=== PATIENT | female | born 1965 | race Two or more races ===

== ENCOUNTER → 2017-03-03 | Outpatient (CLI) | payer OTHER ==
[~2017-03-03] MED LIST: AMLO5 PO; Advair Hfa 230-12 GM INH; Augmentin 875-1 EACH PO; BACITRAYCIN PLU28 GM TOP; CYCL10 PO; Ceftriaxon2 GM/50 ML IV; DOXY100 PO; FIORINAL-COD 31 EACH PO; GABA300 PO; HYDR1TAB94 PO; METO100ER PO; MONT10T PO; PANT40 PO; PRAM.5 PO; QUIN10 PO; SACC250C PO; SERT100 PO; TOLT2ER PO; VANCO 1.251.25 GM/25 IV
== END ==
LOC: LAB EV 11:56
DX: L03.90 Cellulitis, unspecified (principal)
CPT/HCPCS: 87070; 87077; 87147; 87186; 87205

== ENCOUNTER 2017-03-10 11:49 | Inpatient (IN) | payer OTHER ==
[~2017-03-10] VITALS: Ht 144.8 cm; Wt 118.3 kg
[2017-03-10 13:12] LABS: BASOPHILS ABSOLUTE AUTO 0.03 K/mm3 (0.00-0.23); BASOPHILS PERCENT AUTO 0 % (0-2); EOSINOPHILS ABSOLUTE AUTO 0.06 K/mm3 (0.00-0.68); EOSINOPHILS PERCENT AUTO 1 % (0-6); Hemoglobin 12.3 g/dL (11.5-16.0); IMMATURE GRAN ABSOLUTE AUTO 0.17 K/mm3 (0.00-0.10); IMMATURE GRAN PERCENT AUTO 2 % (0-1); LYMPHOCYTES ABSOLUTE AUTO 1.15 K/mm3 (0.84-5.20); LYMPHOCYTES PERCENT AUTO 10 % (21-46); MONOCYTES ABSOLUTE AUTO 0.59 K/mm3 (0.16-1.47); MONOCYTES PERCENT AUTO 5 % (4-13); Mean Corpuscular HGB 29.1 pg (26.0-34.0); Mean Corpuscular HGB Conc 31.5 g/dL (31.5-36.5); Mean Corpuscular Volume 92 fL (80-100); Mean Platelet Volume 10.7 fL (9.1-12.4); NEUTROPHILS ABSOLUTE AUTO 9.56 K/mm3 (1.96-9.15); NEUTROPHILS PERCENT AUTO 83 % (41-73); Platelet Count 361 K/mm3 (150-400); Red Blood Cell Count 4.23 M/mm3 (3.80-5.20); White Blood Cell Count 11.56 K/mm3 (4.00-11.30)
[2017-03-10 13:28] LABS: Alanine Aminotransfer (ALT/SGP 27 U/L (12-78); Albumin/Globulin Ratio 0.4 (0.8-1.8); Alk Phos 121 U/L (50-136); Anion Gap 7 mmol/L (6-16); Aspartate Aminotrans (AST/SGOT 29 U/L (12-37); Bilirubin, Total 0.4 mg/dL (0.1-1.0); Blood Urea Nitrogen 15 mg/dL (8-24); Bun/Creatinine Ratio 25.3 (12.0-20.0); CO2, Blood 24 mmol/L (21-32); Calcium, Blood 8.6 mg/dL (8.5-10.1); Chloride, Blood 107 mmol/L (98-108); Creatinine, Blood 0.59 mg/dL (0.40-1.00); Globulin, Blood 5.7 g/dL (2.2-4.0); Glomerular Filtration Rate >60 (60-); Glucose, Blood 175 mg/dL (70-99); Potassium, Blood 3.9 mmol/L (3.5-5.5); Sodium, Blood 138 mmol/L (136-145); Total Protein, Blood 7.7 g/dL (6.4-8.2)
[2017-03-10 17:30] LABS: Source, Urine Clean Catch
[2017-03-10] MEDS ORDERED: HYDR1TAB94 PO (17:33)
[2017-03-10] MEDS ORDERED: PRAM.5 PO (17:33)
[2017-03-10] MEDS ORDERED: CYCL10 PO (17:34)
[2017-03-10] MEDS ORDERED: AMLO5 PO (17:34)
[2017-03-10] MEDS ORDERED: Advair Hfa 230-12 GM INH (17:34)
[2017-03-10] MEDS ORDERED: GABA300 PO (17:34)
[2017-03-10] MEDS ORDERED: PANT40 PO (17:35)
[2017-03-10] MEDS ORDERED: QUIN10 PO (17:36)
[2017-03-10] MEDS ORDERED: DOXY100 PO (17:36)
[2017-03-10] MEDS ORDERED: MONT10T PO (17:37)
[2017-03-10] MEDS ORDERED: METO100ER PO (17:37)
[2017-03-10] MEDS ORDERED: Augmentin 875-1 EACH PO (17:37)
[2017-03-10] MEDS ORDERED: TOLT2ER PO (17:37)
[2017-03-10] MEDS ORDERED: SERT100 PO (17:38)
[2017-03-10 17:39] LABS: Bilirubin, Urine Neg (Neg); Blood, Urine 2+ (Neg); Glucose Qualitative, Urine Neg (Neg); Ketones, Urine Neg (Neg); Leukocyte Esterase, Urine 3+ (Neg); Nitrite, Urine Neg (Neg); Protein, Urine 1+ (Neg); Urobilinogen, Urine NORM (Normal)
[2017-03-10 18:08] LABS: Appearance, Urine Hazy (Clear); Color, Urine Yellow (P-Yellow); Red Blood Cells, Urine Not Seen /hpf (0-2); Squamous Epithelial Cells Mod /hpf (Few)
[2017-03-10 18:09] LABS: Bacteria Not Seen /hpf; White Blood Cells, Urine 0-2 /hpf (0-5)
[2017-03-12 07:04] LABS: BASOPHILS ABSOLUTE AUTO 0.03 K/mm3 (0.00-0.23); BASOPHILS PERCENT AUTO 0 % (0-2); EOSINOPHILS PERCENT AUTO 1 % (0-6); Hematocrit 32.1 % (33.0-51.0); Hemoglobin 10.4 g/dL (11.5-16.0); IMMATURE GRAN ABSOLUTE AUTO 0.07 K/mm3 (0.00-0.10); IMMATURE GRAN PERCENT AUTO 1 % (0-1); LYMPHOCYTES ABSOLUTE AUTO 1.69 K/mm3 (0.84-5.20); LYMPHOCYTES PERCENT AUTO 19 % (21-46); MONOCYTES ABSOLUTE AUTO 0.61 K/mm3 (0.16-1.47); MONOCYTES PERCENT AUTO 7 % (4-13); Mean Corpuscular HGB 29.1 pg (26.0-34.0); Mean Corpuscular HGB Conc 32.4 g/dL (31.5-36.5); Mean Corpuscular Volume 90 fL (80-100); Mean Platelet Volume 9.9 fL (9.1-12.4); NEUTROPHILS ABSOLUTE AUTO 6.26 K/mm3 (1.96-9.15); NEUTROPHILS PERCENT AUTO 72 % (41-73); Platelet Count 378 K/mm3 (150-400); RDW Coefficient Variation 14.6 % (11.7-14.2); RDW Standard Deviation 48.2 fL (35.1-46.3); Red Blood Cell Count 3.57 M/mm3 (3.80-5.20); White Blood Cell Count 8.76 K/mm3 (4.00-11.30)
[2017-03-12 07:44] LABS: Anion Gap 6 mmol/L (6-16); Blood Urea Nitrogen 8 mg/dL (8-24); Bun/Creatinine Ratio 13.4 (12.0-20.0); CO2, Blood 26 mmol/L (21-32); Chloride, Blood 107 mmol/L (98-108); Glomerular Filtration Rate >60 (60-); Glucose, Blood 91 mg/dL (70-99); Potassium, Blood 3.8 mmol/L (3.5-5.5); Sodium, Blood 139 mmol/L (136-145)
[2017-03-12 07:47] LABS: Vancomycin, Trough 19.4 ug/mL (5.0-10.0)
[2017-03-14 08:53] LABS: Vancomycin, Trough 15.7 ug/mL (5.0-10.0)
[2017-03-15 05:52] LABS: Hematocrit 33.3 % (33.0-51.0); Hemoglobin 10.7 g/dL (11.5-16.0); Mean Corpuscular HGB 29.1 pg (26.0-34.0); Mean Corpuscular HGB Conc 32.1 g/dL (31.5-36.5); Mean Corpuscular Volume 91 fL (80-100); Mean Platelet Volume 9.8 fL (9.1-12.4); Platelet Count 471 K/mm3 (150-400); RDW Coefficient Variation 14.3 % (11.7-14.2); RDW Standard Deviation 47.5 fL (35.1-46.3); Red Blood Cell Count 3.68 M/mm3 (3.80-5.20); White Blood Cell Count 7.77 K/mm3 (4.00-11.30)
[2017-03-15 06:18] LABS: Anion Gap 5 mmol/L (6-16); Blood Urea Nitrogen 8 mg/dL (8-24); Bun/Creatinine Ratio 12.2 (12.0-20.0); CO2, Blood 27 mmol/L (21-32); Calcium, Blood 8.4 mg/dL (8.5-10.1); Chloride, Blood 105 mmol/L (98-108); Creatinine, Blood 0.66 mg/dL (0.40-1.00); Glomerular Filtration Rate >60 (60-); Glucose, Blood 104 mg/dL (70-99); Potassium, Blood 3.9 mmol/L (3.5-5.5); Sodium, Blood 137 mmol/L (136-145)
[2017-03-18 08:55] LABS: Creatinine, Blood 0.57 mg/dL (0.40-1.00); Vancomycin, Trough 18.1 ug/mL (5.0-10.0)
[2017-03-21 09:03] LABS: BASOPHILS ABSOLUTE AUTO 0.11 K/mm3 (0.00-0.23); BASOPHILS PERCENT AUTO 1 % (0-2); EOSINOPHILS PERCENT AUTO 1 % (0-6); Hematocrit 31.2 % (33.0-51.0); Hemoglobin 9.7 g/dL (11.5-16.0); IMMATURE GRAN ABSOLUTE AUTO 0.02 K/mm3 (0.00-0.10); IMMATURE GRAN PERCENT AUTO 0 % (0-1); LYMPHOCYTES ABSOLUTE AUTO 2.71 K/mm3 (0.84-5.20); LYMPHOCYTES PERCENT AUTO 30 % (21-46); MONOCYTES ABSOLUTE AUTO 0.71 K/mm3 (0.16-1.47); MONOCYTES PERCENT AUTO 8 % (4-13); Mean Corpuscular HGB 28.9 pg (26.0-34.0); Mean Corpuscular HGB Conc 31.1 g/dL (31.5-36.5); Mean Corpuscular Volume 93 fL (80-100); Mean Platelet Volume 9.8 fL (9.1-12.4); NEUTROPHILS ABSOLUTE AUTO 5.31 K/mm3 (1.96-9.15); NEUTROPHILS PERCENT AUTO 59 % (41-73); Platelet Count 452 K/mm3 (150-400); RDW Coefficient Variation 13.9 % (11.7-14.2); RDW Standard Deviation 47.1 fL (35.1-46.3); Red Blood Cell Count 3.36 M/mm3 (3.80-5.20); White Blood Cell Count 8.96 K/mm3 (4.00-11.30)
[2017-03-21 09:25] LABS: Anion Gap 3 mmol/L (6-16); Blood Urea Nitrogen 10 mg/dL (8-24); Bun/Creatinine Ratio 17.4 (12.0-20.0); CO2, Blood 31 mmol/L (21-32); Calcium, Blood 8.7 mg/dL (8.5-10.1); Chloride, Blood 103 mmol/L (98-108); Creatinine, Blood 0.58 mg/dL (0.40-1.00); Glomerular Filtration Rate >60 (60-); Glucose, Blood 94 mg/dL (70-99); Potassium, Blood 4.1 mmol/L (3.5-5.5); Sodium, Blood 137 mmol/L (136-145)
[2017-03-21 10:33] LABS: Creatinine, Blood 0.59 mg/dL (0.40-1.00); Vancomycin, Trough 17.1 ug/mL (5.0-10.0)
[2017-03-22 07:13] LABS: BASOPHILS ABSOLUTE AUTO 0.14 K/mm3 (0.00-0.23); BASOPHILS PERCENT AUTO 2 % (0-2); EOSINOPHILS ABSOLUTE AUTO 0.25 K/mm3 (0.00-0.68); EOSINOPHILS PERCENT AUTO 4 % (0-6); Hematocrit 32.1 % (33.0-51.0); Hemoglobin 9.9 g/dL (11.5-16.0); IMMATURE GRAN ABSOLUTE AUTO 0.01 K/mm3 (0.00-0.10); IMMATURE GRAN PERCENT AUTO 0 % (0-1); LYMPHOCYTES ABSOLUTE AUTO 2.31 K/mm3 (0.84-5.20); LYMPHOCYTES PERCENT AUTO 35 % (21-46); MONOCYTES ABSOLUTE AUTO 0.64 K/mm3 (0.16-1.47); MONOCYTES PERCENT AUTO 10 % (4-13); Mean Corpuscular HGB 28.7 pg (26.0-34.0); Mean Corpuscular HGB Conc 30.8 g/dL (31.5-36.5); Mean Corpuscular Volume 93 fL (80-100); Mean Platelet Volume 9.8 fL (9.1-12.4); NEUTROPHILS PERCENT AUTO 50 % (41-73); Platelet Count 424 K/mm3 (150-400); RDW Coefficient Variation 13.6 % (11.7-14.2); RDW Standard Deviation 46.5 fL (35.1-46.3); Red Blood Cell Count 3.45 M/mm3 (3.80-5.20); White Blood Cell Count 6.65 K/mm3 (4.00-11.30)
[2017-03-23] MEDS ORDERED: BACITRAYCIN PLU28 GM TOP (14:01)
[2017-03-23] MEDS ORDERED: FIORINAL-COD 31 EACH PO (14:03)
[2017-03-23] MEDS ORDERED: SACC250C PO (14:13)
[2017-03-23] MEDS ORDERED: Ceftriaxon2 GM/50 ML IV (14:14)
[2017-03-23] MEDS ORDERED: VANCO 1.251.25 GM/25 IV (14:15)
== END 2017-03-23 13:49 | DRG 982 ==
LOC: ER 11:49 → ERHOLD 18:14 → MEDS 18:14 → ENPENDDIS 03-23 10:12 → MEDS 03-23 13:49
PROVIDERS: Emergency Medicine; Internal Medicine; Orthopaedic Surgery; Physician Assistant
PROC: 5A09357 Assistance with Respiratory Ventilation, Less than 24 Consecutive Hours, Continuous Positive Airway Pressure (ICD-10-PCS; 2017-03-10)
PROC: 3E0234Z Introduction of Serum, Toxoid and Vaccine into Muscle, Percutaneous Approach (ICD-10-PCS; 2017-03-11)
PROC: 0LBN0ZZ Excision of Right Lower Leg Tendon, Open Approach (ICD-10-PCS; principal; 2017-03-20 09:00)
DX: L03.115 Cellulitis of right lower limb (principal); N39.0 Urinary tract infection, site not specified; E66.01 Morbid (severe) obesity due to excess calories; I10 Essential (primary) hypertension; J45.909 Unspecified asthma, uncomplicated; K21.9 Gastro-esophageal reflux disease without esophagitis; Z23 Encounter for immunization; M79.7 Fibromyalgia; I89.0 Lymphedema, not elsewhere classified; I87.8 Other specified disorders of veins; R73.9 Hyperglycemia, unspecified; N32.81 Overactive bladder; F32.9 Major depressive disorder, single episode, unspecified; B95.62 Methicillin resistant Staphylococcus aureus infection as the cause of diseases classified elsewhere; L02.415 Cutaneous abscess of right lower limb
CPT/HCPCS: 36415; 36569; 80048; 80053; 80202; 81001; 82565; 83036; 85025; 85027; 87070; 87075; 87077; 87086; 87147; 87186; 87205; 93005; 93010; 94640; 94660; 94762; 96361; 96372; 96374; 97110; 97116; 97162; 97166; 97535; 99285; C1751; G8978; G8979; G8987; G8988; J0330; J0360; J0690; J0696; J1100; J1650; J2405; J2997; J3010; J3370; J7030; J7050

== ENCOUNTER → 2017-03-24 | Outpatient (CLI) | payer OTHER ==
[2017-03-24 08:25] LABS: Anion Gap 5 mmol/L (6-16); Blood Urea Nitrogen 10 mg/dL (8-24); Bun/Creatinine Ratio 16.4 (12.0-20.0); CO2, Blood 29 mmol/L (21-32); Calcium, Blood 8.9 mg/dL (8.5-10.1); Chloride, Blood 103 mmol/L (98-108); Creatinine, Blood 0.61 mg/dL (0.40-1.00); Glomerular Filtration Rate >60 (60-); Glucose, Blood 108 mg/dL (70-99); Potassium, Blood 4.7 mmol/L (3.5-5.5); Sodium, Blood 137 mmol/L (136-145)
== END | disposition home or self-care (01) ==
LOC: LAB RH 07:54
PROVIDERS: Family Medicine
DX: T81.89XD Other complications of procedures, not elsewhere classified, subsequent encounter (principal)
CPT/HCPCS: 80048; 80202

== ENCOUNTER 2017-04-22 00:58 | Day surgery (SDC) | payer OTHER | END 2017-04-22 23:19 | disposition home or self-care (01) | LOC: WOUND 00:58 | DX: Z48.00 Encounter for change or removal of nonsurgical wound dressing (principal); I89.0 Lymphedema, not elsewhere classified; I10 Essential (primary) hypertension; S81.801S Unspecified open wound, right lower leg, sequela; L03.115 Cellulitis of right lower limb; E66.01 Morbid (severe) obesity due to excess calories; G47.33 Obstructive sleep apnea (adult) (pediatric); R60.0 Localized edema | CPT/HCPCS: G0463 ==

== ENCOUNTER → 2018-02-15 | Outpatient (CLI) | payer OTHER | LOC: LAB UCHC 12:43 → LAB SHORT 12:43 → LAB 12:43 | DX: N39.0 Urinary tract infection, site not specified (principal) | CPT/HCPCS: 87077; 87086; 87186 ==

== ENCOUNTER → 2020-12-31 | Outpatient (CLI) | payer OTHER ==
[2020-12-31 13:59] LABS: BASOPHILS ABSOLUTE AUTO 0.06 K/mm3 (0.00-0.23); BASOPHILS PERCENT AUTO 1 % (0-2); EOSINOPHILS ABSOLUTE AUTO 0.21 K/mm3 (0.00-0.68); EOSINOPHILS PERCENT AUTO 3 % (0-6); Hematocrit 43.3 % (33.0-51.0); Hemoglobin 13.7 g/dL (11.5-16.0); IMMATURE GRAN ABSOLUTE AUTO 0.02 K/mm3 (0.00-0.10); IMMATURE GRAN PERCENT AUTO 0 % (0-1); LYMPHOCYTES ABSOLUTE AUTO 2.12 K/mm3 (0.84-5.20); LYMPHOCYTES PERCENT AUTO 31 % (21-46); MONOCYTES ABSOLUTE AUTO 0.48 K/mm3 (0.16-1.47); MONOCYTES PERCENT AUTO 7 % (4-13); Mean Corpuscular HGB Conc 31.6 g/dL (31.5-36.5); Mean Corpuscular Volume 89 fL (80-100); Mean Platelet Volume 11.4 fL (9.1-12.4); NEUTROPHILS ABSOLUTE AUTO 3.93 K/mm3 (1.96-9.15); NEUTROPHILS PERCENT AUTO 58 % (41-73); Platelet Count 287 K/mm3 (150-400); RDW Coefficient Variation 13.6 % (11.7-14.2); RDW Standard Deviation 44.6 fL (35.1-46.3); Red Blood Cell Count 4.89 M/mm3 (3.80-5.20); White Blood Cell Count 6.82 K/mm3 (4.00-11.30)
[2020-12-31 14:02] LABS: Alanine Aminotransfer (ALT/SGP 31 U/L (12-78); Albumin, Blood 3.3 g/dL (3.4-5.0); Albumin/Globulin Ratio 0.7 (0.8-1.8); Alk Phos 95 U/L (50-136); Anion Gap 9 mmol/L (6-16); Aspartate Aminotrans (AST/SGOT 21 U/L (12-37); Bilirubin, Total 0.5 mg/dL (0.1-1.0); Blood Urea Nitrogen 17 mg/dL (8-24); Bun/Creatinine Ratio 22.5 (12.0-20.0); CO2, Blood 26 mmol/L (21-32); Calcium, Blood 9.3 mg/dL (8.5-10.1); Chloride, Blood 103 mmol/L (98-108); Creatinine, Blood 0.76 mg/dL (0.40-1.00); Globulin, Blood 4.6 g/dL (2.2-4.0); Glomerular Filtration Rate >60 (60-); Glucose, Blood 126 mg/dL (70-99); Potassium, Blood 3.3 mmol/L (3.5-5.5); Sodium, Blood 138 mmol/L (136-145); Total Protein, Blood 7.9 g/dL (6.4-8.2)
[2020-12-31 14:28] LABS: Percent Saturation 11.8 % (15.0-50.0)
== END | disposition home or self-care (01) ==
LOC: LAB 12:15 → LAB SHORT 12:15
PROVIDERS: Family Medicine
DX: R53.83 Other fatigue (principal); R73.03 Prediabetes; Z79.899 Other long term (current) drug therapy
CPT/HCPCS: 80053; 82306; 82607; 82728; 82746; 83036; 83540; 83550; 85025

== ENCOUNTER 2021-08-27 11:29 | Day surgery (SDC) | payer OTHER ==
[~2021-08-27] VITALS: Ht 144.8 cm; Wt 118.1 kg
[~2021-08-27 11:29] MED LIST changes: +ACET500 PO; +ALBU90OI INH; +BENZ100A PO; +CATAPRES0.1 MG PO; +CELE100 PO; +FLUT.05NI; +FURO40 PO; +Fiber625 MG PO; +GUAI600T33 PO; +LOSARTAN POTAS100 M1 PO; +Loratadine10 MG PO; +MAGNESIUM OXID500 MG PO; +METOPROLOL-HCT1 EAC2 PO; +Monodox100 MG PO; +NAPR500 PO; +POTA20LUD PO; +TEMA15 PO; +THERA-D2000 UNIT PO; +TOLT2 PO; +ZESTORETIC 20-121 EA PO
--- NOTE | 2021-08-27 13:01 | NUR ---
08/27/21 1301 [address] @ 4550, RANDI @ 1068
== END 2021-08-27 14:18 | disposition home or self-care (01) ==
LOC: ORSCSDS 11:29
PROVIDERS: Ophthalmology
PROC: 08RJ3JZ Replacement of Right Lens with Synthetic Substitute, Percutaneous Approach (ICD-10-PCS; principal; 2021-08-27 13:30)
DX: H25.13 Age-related nuclear cataract, bilateral (principal); I10 Essential (primary) hypertension; R06.02 Shortness of breath; J44.9 Chronic obstructive pulmonary disease, unspecified; G47.33 Obstructive sleep apnea (adult) (pediatric); K21.9 Gastro-esophageal reflux disease without esophagitis; E66.01 Morbid (severe) obesity due to excess calories; Z68.43 Body mass index [BMI] 50.0-59.9, adult; Z87.891 Personal history of nicotine dependence; Z79.899 Other long term (current) drug therapy
CPT/HCPCS: J2001; J2250; J3010; J3301; J7040; V2632

== ENCOUNTER 2022-11-17 04:45 | Day surgery (SDC) | payer OTHER ==
[~2022-11-17 04:45] MED LIST changes: +Doxycycline Mo100 M1 PO; +Mucus Relief400 MG PO
== END 2022-11-17 22:46 | disposition home or self-care (01) ==
LOC: WOUND 04:45
DX: S81.812D Laceration without foreign body, left lower leg, subsequent encounter (principal); I10 Essential (primary) hypertension; E11.622 Type 2 diabetes mellitus with other skin ulcer; E11.51 Type 2 diabetes mellitus with diabetic peripheral angiopathy without gangrene
CPT/HCPCS: G0463

== ENCOUNTER 2022-12-08 02:35 | Day surgery (SDC) | payer OTHER | END 2022-12-08 23:17 | disposition home or self-care (01) | LOC: WOUND 02:35 | DX: Z09 Encounter for follow-up examination after completed treatment for conditions other than malignant neoplasm (principal); I10 Essential (primary) hypertension | CPT/HCPCS: G0463 ==

== ENCOUNTER 2023-12-01 02:25 | Day surgery (SDC) | payer OTHER | END 2023-12-01 23:00 | disposition home or self-care (01) | LOC: WOUND 02:25 | DX: I89.0 Lymphedema, not elsewhere classified (principal); I87.2 Venous insufficiency (chronic) (peripheral); J45.909 Unspecified asthma, uncomplicated; G47.30 Sleep apnea, unspecified; I10 Essential (primary) hypertension; E11.9 Type 2 diabetes mellitus without complications | CPT/HCPCS: G0463 ==

== ENCOUNTER 2023-12-09 03:48 | Day surgery (SDC) | payer OTHER | END 2023-12-10 01:22 | disposition home or self-care (01) | LOC: WOUND 03:48 | DX: I89.0 Lymphedema, not elsewhere classified (principal); I87.2 Venous insufficiency (chronic) (peripheral) | CPT/HCPCS: G0463 ==

== ENCOUNTER 2023-12-16 02:35 | Day surgery (SDC) | payer OTHER | END 2023-12-16 22:55 | disposition home or self-care (01) | LOC: WOUND 02:35 | DX: I89.0 Lymphedema, not elsewhere classified (principal); I87.2 Venous insufficiency (chronic) (peripheral) | CPT/HCPCS: G0463 ==

== ENCOUNTER 2024-01-09 03:34 | Day surgery (SDC) | payer OTHER | END 2024-01-09 23:00 | disposition home or self-care (01) | LOC: WOUND 03:34 | DX: I89.0 Lymphedema, not elsewhere classified (principal); L97.112 Non-pressure chronic ulcer of right thigh with fat layer exposed; L97.822 Non-pressure chronic ulcer of other part of left lower leg with fat layer exposed; I87.313 Chronic venous hypertension (idiopathic) with ulcer of bilateral lower extremity; I87.2 Venous insufficiency (chronic) (peripheral) | CPT/HCPCS: G0463 ==

== ENCOUNTER 2024-01-30 01:24 | Day surgery (SDC) | payer OTHER | END 2024-01-30 23:00 | disposition home or self-care (01) | LOC: WOUND 01:24 | DX: I87.313 Chronic venous hypertension (idiopathic) with ulcer of bilateral lower extremity (principal); L97.812 Non-pressure chronic ulcer of other part of right lower leg with fat layer exposed; L97.312 Non-pressure chronic ulcer of right ankle with fat layer exposed; L97.822 Non-pressure chronic ulcer of other part of left lower leg with fat layer exposed; I89.0 Lymphedema, not elsewhere classified; I87.2 Venous insufficiency (chronic) (peripheral) | CPT/HCPCS: A6213; G0463 ==

== ENCOUNTER 2024-02-13 03:22 | Day surgery (SDC) | payer OTHER | END 2024-02-13 23:00 | disposition home or self-care (01) | LOC: WOUND 03:22 | DX: I87.313 Chronic venous hypertension (idiopathic) with ulcer of bilateral lower extremity (principal); L97.312 Non-pressure chronic ulcer of right ankle with fat layer exposed; I89.0 Lymphedema, not elsewhere classified; S21.101D Unspecified open wound of right front wall of thorax without penetration into thoracic cavity, subsequent encounter; L97.112 Non-pressure chronic ulcer of right thigh with fat layer exposed; L97.822 Non-pressure chronic ulcer of other part of left lower leg with fat layer exposed; I87.2 Venous insufficiency (chronic) (peripheral); X58.XXXD Exposure to other specified factors, subsequent encounter | CPT/HCPCS: G0463 ==